=== PATIENT | male | born 1960 | race Two or more races ===

== ENCOUNTER 2020-05-11 09:13 | Outpatient (CLI) | payer OTHER ==
[~2020-05-11 09:13] MED LIST: ALTACE5 MG; ASPIR 8181 MG; GABAPENTIN400 MG; JANUVIA50 MG; LANTUS SOLOSTAR3 ML; LIPITOR40 MG; METOPROLOL SUCC50 MG; NOVOLOG100 U/M1
== END 2020-05-11 09:43 | disposition home or self-care (01) ==
LOC: RAD 09:13 → MRI 09:15 → RAD 09:43
PROVIDERS: ATTEND Internal Medicine Rheumatology
DX: M54.17 Radiculopathy, lumbosacral region (principal); M54.16 Radiculopathy, lumbar region; M15.0 Primary generalized (osteo)arthritis; M05.79 Rheumatoid arthritis with rheumatoid factor of multiple sites without organ or systems involvement
CPT/HCPCS: 72148

== ENCOUNTER 2020-05-18 07:18 | Outpatient (CLI) | payer OTHER | END 2020-05-18 07:26 | disposition home or self-care (01) | LOC: NUCLEAR 07:18 | PROVIDERS: ATTEND Internal Medicine Rheumatology | DX: M05.29 Rheumatoid vasculitis with rheumatoid arthritis of multiple sites (principal); M87.059 Idiopathic aseptic necrosis of unspecified femur | CPT/HCPCS: 78306; A9503 ==